=== PATIENT | female | born 1950 | race Caucasian/White ===

== ENCOUNTER → 2016-12-05 17:22 | Outpatient (CLI) | payer MEDICARE ==
[2014-04-17 08:15] VITALS: BMI 24.2
[~2016-12-05 17:22] MED LIST: VIVELLE-DOT 00.05 MG TD
== END | disposition home or self-care (01) ==
LOC: D.MAMMO 16:15
DX: Z12.31 Encounter for screening mammogram for malignant neoplasm of breast (principal)

== ENCOUNTER → 2017-12-25 23:51 | Outpatient (CLI) | payer MEDICARE ==
[2014-04-17 08:15] VITALS: BMI 24.2
== END | disposition home or self-care (01) ==
LOC: D.MAMMO 12-11 14:00
DX: Z12.31 Encounter for screening mammogram for malignant neoplasm of breast (principal)

== ENCOUNTER 2019-01-06 08:00 | Outpatient (CLI) | payer MEDICARE ==
[2014-04-17 08:15] VITALS: BMI 24.2
== END 2019-01-06 23:59 | disposition home or self-care (01) ==
LOC: D.MAMMO 08:00
PROVIDERS: ATTEND Obstetrics & Gynecology
DX: Z12.31 Encounter for screening mammogram for malignant neoplasm of breast (principal)

== ENCOUNTER 2020-01-19 19:00 | Outpatient (CLI) | payer MEDICARE ==
[2014-04-17 08:15] VITALS: BMI 24.2
== END 2020-01-19 23:59 | disposition home or self-care (01) ==
LOC: D.MAMMO 19:00
PROVIDERS: ATTEND Obstetrics & Gynecology
DX: Z12.31 Encounter for screening mammogram for malignant neoplasm of breast (principal)

== ENCOUNTER 2020-02-02 08:00 | Outpatient (CLI) | payer MEDICARE ==
[2014-04-17 08:15] VITALS: BMI 24.2
== END 2020-02-02 23:59 | disposition home or self-care (01) ==
LOC: D.MAMMO 08:00
PROVIDERS: ATTEND Obstetrics & Gynecology
DX: Z12.31 Encounter for screening mammogram for malignant neoplasm of breast (principal)

== ENCOUNTER → 2020-12-14 09:15 | Outpatient (CLI) | payer MEDICARE ==
[2014-04-17 08:15] VITALS: BMI 24.2
== END | disposition home or self-care (01) ==
LOC: D.US 09:15
PROVIDERS: ATTEND Obstetrics & Gynecology
DX: M79.604 Pain in right leg (principal)